=== PATIENT | female | born 1980 | race Two or more races ===

== ENCOUNTER 2018-12-17 14:00 | Outpatient (AMBR) | payer MEDICAID, SELFPAY ==
--- NOTE | 2018-12-10 14:19 | PT.ODAYNRPT ---
PT Outpatient Daily Note Date of Service: December 10, 2018 OP Daily Note Visit Reasons: back pain Outpatient Physical Therapy Treatment Date: 12/10/18 Subjective: My back feels better after therapy for a day or two. Objective: See F/S for therex Mechanical Traction L/s x7' at 25 lbs Assessment: Good temporary LBP relief after therapy visits. Plan: Continue per POC Length of Time (minutes) of Treatment: 30 Minutes Office Procedures PT Procedures PT Date of Service: 12/10/18 Therapeutic Exercise 30 minutes: Yes
--- NOTE | 2018-12-12 15:12 | PT.ODAYNRPT ---
PT Outpatient Daily Note Date of Service: December 12, 2018 OP Daily Note Visit Reasons: back pain Outpatient Physical Therapy Treatment Date: 12/12/18 Subjective: My back feels better after therapy for a day or two. Objective: See F/S for therex Assessment: Good temporary LBP relief with MHP and traction. Plan: Continue per POC Length of Time (minutes) of Treatment: 30 Minutes Office Procedures PT Procedures PT Date of Service: 12/10/18 Therapeutic Exercise 30 minutes: Yes PT Procedures PT Date of Service: 12/12/18 Therapeutic Exercise 30 minutes: Yes
--- NOTE | 2018-12-17 18:08 | PT.ODAYNRPT ---
PT Outpatient Daily Note Date of Service: December 17, 2018 OP Daily Note Visit Reasons: back pain Outpatient Physical Therapy Treatment Date: 12/17/18 Subjective: My back feels better after therapy for a day or two. Feels much better while doing traction Objective: See F/S for therex Mechanical traction L/S at 35 lbs for 7' Assessment: Good temporary LBP relief with MHP and traction. Plan: Continue per POC Length of Time (minutes) of Treatment: 30 Minutes Office Procedures PT Procedures PT Date of Service: 12/10/18 Therapeutic Exercise 30 minutes: Yes PT Procedures PT Date of Service: 12/17/18 Therapeutic Exercise 30 minutes: Yes PT Procedures PT Date of Service: 12/12/18 Therapeutic Exercise 30 minutes: Yes
== END 2018-12-30 23:59 | disposition home or self-care (01) ==
PROVIDERS: Visit Provider Family Medicine
DX: M54.5 Low back pain (principal); G89.29 Other chronic pain
CPT/HCPCS: 97110